=== PATIENT | female | born 1975 ===

== ENCOUNTER 2017-01-13 11:36 | Day surgery (SDC) | payer MEDICARE, OTHER ==
[2017-01-13 11:52] VITALS: BMI 23.8
[2017-01-13] MEDS ORDERED: Lactated Ringer's 1,000 ML IV ONE (12:15)
[2017-01-13] MEDS ORDERED: Iohexol 300 10 ML ONE (13:47)
[2017-01-13] MEDS ORDERED: methylPREDNISolone Depo 80 mg/ml Inj ONE (13:47)
[2017-01-13] MEDS ORDERED: MethylPREDNISolone Depo 40 mg/ml Inj ONE (13:47)
[2017-01-13] MEDS ORDERED: Lidocaine 1% Inj (20ml) ONE (13:48)
[2017-01-13] MEDS ORDERED: Bupivacaine HCl 0.25% PF (10 ml) Inj ONE (13:48)
[2017-01-13] MEDS ORDERED: Midazolam 2 MG/2 ML VIAL ONE ×3 (13:53→14:00)
[2017-01-13] MEDS ORDERED: Propofol 10 mg/ml Inj (20 ML) ONE (14:02)
[2017-01-13] MEDS ORDERED: Acetaminophen-Codeine 300/30 mg Tab PO PRN (15:02)
[2017-01-13] MEDS ORDERED: HYDROmorphone 0.5 mg/0.5 ml ISec IVP PRN (15:22)
--- NOTE | 2017-01-13 15:31 | CP.PCM.PN ---
Subjective - Date & Time of Evaluation Date of Evaluation: 01/13/17 Time of Evaluation: 15:15 - Subjective Subjective: Patient was consented for right occipital nerve block but procedure was delayed until she was awake and alert in the PACU. The tender points over the right greater occipital nerve region, medial to the right occipital arterial pulse, was palpated and marked. The skin over this area was cleansed with EtOH, a 25G 1.5-inch needle was then inserted perpendicular to the skin until bone was contacted. After negative aspiration, approximately 3cc of .25% marcaine and 40mg Depomedrol was injected. Patient tolerated procedure well. Objective - Vital Signs/Intake and Output Vital Signs (last 24 hours): Temp Pulse Resp BP Pulse Ox 98.1 F 58 L 18 126/68 97 01/13/17 12:00 01/13/17 12:00 01/13/17 12:00 01/13/17 12:00 01/13/17 12:00 Intake and Output: 01/13/17 01/13/17 06:59 18:59 Intake Total 300 Balance 300 - Medications Medications: Current Medications Acetaminophen/Codeine Phosphate (Tylenol/Codeine 300 Mg/30 Mg) 1 tab PO ONCE PRN PRN Reason: Pain, moderate (4-7) Hydromorphone HCl (Dilaudid) 0.5 mg IVP Q5M PRN PRN Reason: Pain, moderate (4-7) Stop: 01/13/17 17:22 Ondansetron HCl (Zofran Inj) 4 mg IVP ONCE PRN PRN Reason: Nausea/Vomiting Stop: 01/13/17 17:22
--- NOTE | 2017-01-13 15:47 | OP ---
PROCEDURE DATE: 01/13/2017 PREOPERATIVE DIAGNOSIS: Cervical spondylosis. POSTOPERATIVE DIAGNOSIS: Cervical spondylosis. PROCEDURE: Right C3, C4 and C5 medial branch nerve block. SURGEON: Dr. Cook. TYPE OF ANESTHESIA: Monitored anesthesia care. ANESTHESIA ADMINISTERED BY: Dr. Boyd. COMPLICATIONS: None. SPECIMEN: None. DESCRIPTION OF PROCEDURE: After we had discussion of the procedure with the patient including its risks, benefits, alternatives, outcome data, possibility of no effect or increased pain, the patient consented to the procedure. She denies any recent infections, bleeding tendencies, or being on anticoagulants. Decision was then made to proceed to the OR. The patient was placed on the fluoroscopy table in a prone position using a head positioner. The neck was prepped and draped in the usual sterile fashion and sterile technique was adhered to during the entire procedure. The C3, C4 and C5 medial branch nerves are located at the lateral facet border of the corresponding vertebrae on the right side. The skin overlying the 3 above target areas was infiltrated with 1% lidocaine using a 25-gauge needle. Subsequently, a 25-gauge 3.5-inch spinal needle was incrementally advanced under fluoroscopic guidance until the tip of the needle made bony contact with all 3 target areas. The needle was then worked slightly laterally and anteriorly. After satisfactory positioning of all 3 needles, approximately 0.5 mL of Isovue contrast was injected to rule out intravenous spread. After doing so, approximately 2 mL of 0.25% Marcaine and Depo-Medrol mixture was injected. The needle was then removed and the patient's neck was cleaned and dried and bandages were applied. The patient was then transferred to the recovery area in good conditions without any signs of [employer] toxicity or any neurological deficits. She will have a followup in our office in approximately 2 to 5 weeks. En-Sascha Cook MD
[2017-01-13 16:05] VITALS: RESP 20
[2017-01-13 16:20] VITALS: O2SAT 98
[2017-01-13 17:12] VITALS: BP 137/93; PULSE 58; TEMP 98.2
--- NOTE | 2017-01-15 12:26 | RAD ---
PROCEDURE: Cervical epidural injection HISTORY: PAIN MANAGEMENT COMPARISON: None TECHNIQUE: Standard protocol for this study/examination. FINDINGS: Total fluoroscopic time (continuous mode) utilized during the procedure: 19.1 seconds. Total exam DLP: (mGy-cm) 1.76 IMPRESSION: Less than 1 hr fluoroscopic time utilized during performance of the procedure.
== END 2017-01-13 17:20 | disposition home or self-care (01) ==
LOC: H.OPSURG 11:36
PROVIDERS: ATTEND Anesthesiology
DX: M46.92 Unspecified inflammatory spondylopathy, cervical region (principal); G40.909 Epilepsy, unspecified, not intractable, without status epilepticus; I10 Essential (primary) hypertension; F17.210 Nicotine dependence, cigarettes, uncomplicated; J45.909 Unspecified asthma, uncomplicated
CPT/HCPCS: 64520; J1030; J1040; J1170; J2250; J2704; J3010; J7120; Q9967